=== PATIENT | female | born 1940 | race Caucasian/White ===

== ENCOUNTER 2017-07-28 14:00 | Inpatient (IN) | payer MEDICARE ==
[~2017-07-28] VITALS: Ht 149.9 cm; Wt 90.4 kg
[2017-07-28 13:24] VITALS: BP 175/65
[2017-07-28 13:29] LABS: BASOPHILS % (AUTO) 1.4 % (0.0-5.0); EOSINOPHILS % (AUTO) 3.5 % (0.0-8.0); HEMATOCRIT 32.8 % (36-48); LYMPHOCYTES % (AUTO) 33.1 % (21.0-51.0); MEAN CORPUSCULAR HEMOGLOBIN 27.1 pg (27.0-33.0); MEAN CORPUSCULAR HGB CONC 32.1 g/dL (32.0-36.0); MEAN CORPUSCULAR VOLUME 84.5 fL (79-99); MONOCYTES % (AUTO) 9.1 % (3.0-13.0); NEUTROPHILS % (AUTO) 52.9 % (40.0-77.0); PLATELET COUNT (AUTO) 337 K/uL (130-400); RED BLOOD CELL COUNT(AUTO) 3.88 MIL/uL (4.00-5.50); WHITE BLOOD COUNT (AUTO) 10.3 K/uL (4.8-10.8)
[2017-07-28 13:53] LABS: CREATININE 0.8 mg/dL (0.5-1.5); POTASSIUM 4.7 mmol/L (3.5-5.1)
[~2017-07-28 14:00] MED LIST: ASPI-1181 PO; COENZYME Q10 PO; CYCL5TAB PO; ESCI10TA54 PO; FISH1CAP63 PO; FURO20TA4 PO; GABA-318 PO; HUM10VIA6 SQ; LOSA100T29 PO; OXYB5TAB10 PO; POTA20TA82 PO; TRAM50TA4 PO; TURM500C9 PO; tylenol arthritis PO
[2017-07-28] MEDS ORDERED: HUM10VIA6 SQ (14:05)
[2017-07-30] VITALS (21 sets, daily range): BP systolic 119–172; BP diastolic 57–87
[2017-07-30] MEDS: CLINDAMYCIN 900 MG/D5% WATER 50 ML IV SCH ×5 (05:00→19:16)
[2017-07-30 06:35] LABS: HEMATOCRIT 32.2 % (36-48); MEAN CORPUSCULAR HEMOGLOBIN 26.7 pg (27.0-33.0); MEAN CORPUSCULAR HGB CONC 31.8 g/dL (32.0-36.0); MEAN CORPUSCULAR VOLUME 83.8 fL (79-99); PLATELET COUNT (AUTO) 329 K/uL (130-400); RED BLOOD CELL COUNT(AUTO) 3.85 MIL/uL (4.00-5.50); RED CELL DISTRIBUTION WIDTH 16.9 % (11.0-15.5); WHITE BLOOD COUNT (AUTO) 9.3 K/uL (4.8-10.8)
[2017-07-30] MEDS ORDERED: THROMBIN-JMI 20000 UNIT KIT TP ONE (06:39)
[2017-07-30] MEDS ORDERED: BUPIVACAINE/PF 0.25% 30ML VIAL IJ ONE (06:39)
[2017-07-30] MEDS ORDERED: EPINEPHRINE 1 MG/ML AMPULE ONE (06:39)
[2017-07-30] MEDS ORDERED: BACITRACIN 50,000 UNIT VIAL ONE (06:39)
[2017-07-30] MEDS ORDERED: DURAMORPH PF1 MG/ML 10ML AMP IV ONE (06:39)
[2017-07-30] MEDS ORDERED: SODIUM CHLORIDE 0.9% 1000ML 1,000 ML IV ONE (06:49)
[2017-07-30] MEDS ORDERED: MIDAZOLAM HCL 1 MG/ML 2ML VIAL ONE (07:18)
[2017-07-30] MEDS ORDERED: GLYCOPYRROLATE 0.2 MG/ML 5 ML VIAL ONE (07:18)
[2017-07-30] MEDS ORDERED: DEXAMETHASONE SOD PHOSPHATE 10MG/ML 1ML VIAL ONE ×2 (07:18→09:25)
[2017-07-30] MEDS ORDERED: ONDANSETRON HCL 4 MG/2 ML VIAL ONE ×2 (07:18→09:24)
[2017-07-30] MEDS ORDERED: NEOSTIGMINE 5MG/5ML SYR IV ONE (07:18)
[2017-07-30] MEDS ORDERED: LIDOCAINE PF 2% 5ML ABBOJECT ONE (07:18)
[2017-07-30] MEDS ORDERED: FENTANYL CITRATE PF 50 MCG/1 ML 2ML VIAL ONE ×3 (07:19→09:11)
[2017-07-30] MEDS ORDERED: PROPOFOL 10 MG/ML 20ML VIAL IV ONE (07:19)
[2017-07-30] MEDS ORDERED: ESMOLOL HCL 10 MG/ML 10 ML VIAL ONE (09:24)
[2017-07-30] MEDS ORDERED: METOCLOPRAMIDE 10 MG/2 ML VIAL ONE (09:24)
[2017-07-30] MEDS ORDERED: LIDOCAINE HCL 4% LTA SOL 4 ML VIAL ONE (09:25)
[2017-07-30] MEDS ORDERED: ROCURONIUM BROMIDE 10MG/1ML 5ML VL ONE ×2 (09:26)
[2017-07-30] MEDS ORDERED: SUCCINYLCHOLINE CHLORIDE 20 MG/ML 10 ML VIAL ONE (09:26)
[2017-07-30] MEDS ORDERED: ARTIFICIAL TEARS 3.5 GM OINTMENT ONE (09:27)
[2017-07-30] MEDS ORDERED: HYDRALAZINE HCL 20 MG/ML VIAL ONE (09:52)
[2017-07-30] MEDS ORDERED: SODIUM CHLORIDE 0.9% 10 ML VIAL IVP PRN (10:15)
[2017-07-30] MEDS ORDERED: CYCLOBENZAPRINE HCL 10 MG TABLET PO SCH (10:15)
[2017-07-30] MEDS ORDERED: MORPHINE SULFATE 2 MG/ML 1ML SYG IVP PRN (10:15)
[2017-07-30] MEDS ORDERED: PROMETHAZINE HCL 25 MG/ML 1ML AMPULE IM PRN (10:15)
[2017-07-30] MEDS ORDERED: HYDROCODONE/ACETAMINOPHEN 5/325 MG TAB PO PRN (10:15)
[2017-07-30] MEDS: DEXAMETHASONE SOD PHOSPHATE 4 MG/ML 1ML VIAL IVP SCH ×3 (10:15→21:43)
[2017-07-30] MEDS ORDERED: TRAMADOL HCL 50 MG TABLET PO SCH (10:15)
[2017-07-30] MEDS ORDERED: ACETAMINOPHEN 325 MG TAB PO PRN (10:15)
[2017-07-30] MEDS ORDERED: MEPERIDINE-PF 25 MG/ML SYG ONE ×2 (10:25→10:40)
[2017-07-30] MEDS: LACTATED RINGERS 1000ML 1,000 ML IV SCH ×2 (12:42→21:43)
[2017-07-30] MEDS: GABAPENTIN 300 MG CAPSULE PO SCH ×2 (15:27→20:19)
[2017-07-30] MEDS ORDERED: INSULIN HUMULIN 70/30 100 UNIT/ML 3ML SQ SCH (21:00)
[2017-07-30] MEDS ORDERED: OXYBUTYNIN CHLORIDE 5 MG TABLET PO SCH (21:00)
[2017-07-30] MEDS ORDERED: CITALOPRAM 20 MG TABLET PO SCH (21:00)
[2017-07-31 00:04] VITALS: BP 158/79
[2017-07-31 04:00] VITALS: BP 157/77
[2017-07-31] MEDS: DEXAMETHASONE SOD PHOSPHATE 4 MG/ML 1ML VIAL IVP SCH (04:33)
[2017-07-31 07:26] VITALS: BP 158/76
[2017-07-31] MEDS ORDERED: ULTRA COQ10 100 MG PO SCH (09:00)
[2017-07-31] MEDS ORDERED: FUROSEMIDE 20 MG TABLET PO SCH (09:00)
[2017-07-31] MEDS ORDERED: POTASSIUM CHLORIDE 20 MEQ ERTAB PO SCH (09:00)
[2017-07-31] MEDS ORDERED: LOSARTAN 100 MG TABLET PO SCH (09:00)
[2017-07-31] MEDS ORDERED: TURMERIC ROOT EXTRACT 500 MG PO SCH (09:00)
[2017-07-31] MEDS ORDERED: ASPIRIN 81 MG EC TAB PO SCH (09:00)
[2017-07-31] MEDS ORDERED: INSULIN HUMULIN 70/30 100 UNIT/ML 3ML SQ SCH (09:00)
[2017-07-31] MEDS ORDERED: FISH OIL 1000 MG/CAP PO SCH (09:00)
== END 2017-07-31 09:00 | disposition home or self-care (01) | DRG 516 ==
LOC: EDSTATUS 14:00 → DAHIP 07-30 06:00 → 4AH 07-30 11:30
PROVIDERS: ADMIT Neurological Surgery; ATTEND Neurological Surgery
PROC: 01NB0ZZ Release Lumbar Nerve, Open Approach (ICD-10-PCS; principal; 2017-07-30 07:30)
PROC: 4A11X4G Monitoring of Peripheral Nervous Electrical Activity, Intraoperative, External Approach (ICD-10-PCS; 2017-07-30 07:30)
DX: M54.16 Radiculopathy, lumbar region (principal); Z68.41 Body mass index [BMI] 40.0-44.9, adult; E11.42 Type 2 diabetes mellitus with diabetic polyneuropathy; I11.0 Hypertensive heart disease with heart failure; I50.9 Heart failure, unspecified; M48.00 Spinal stenosis, site unspecified; F41.9 Anxiety disorder, unspecified; E66.01 Morbid (severe) obesity due to excess calories; M19.90 Unspecified osteoarthritis, unspecified site; F32.9 Major depressive disorder, single episode, unspecified; Z79.4 Long term (current) use of insulin; Z90.49 Acquired absence of other specified parts of digestive tract; Z90.710 Acquired absence of both cervix and uterus; Z88.0 Allergy status to penicillin; Z88.8 Allergy status to other drugs, medicaments and biological substances
CPT/HCPCS: 36415; 72020; 80048; 82948; 85025; 85027; A4344; J0171; J0330; J0360; J1100; J1815; J2001; J2175; J2250; J2274; J2405; J2704; J2710; J2765; J3010; J3490; J7030; J7120

== ENCOUNTER → 2018-09-02 | Outpatient (CLI) | payer MEDICARE ==
[~2018-09-02] MED LIST changes: -GABA-318 PO; +GABA600T10 PO; +GADODIAMIDE 10 MMOL/20 ML VIAL IV ONE; -LOSA100T29 PO; +LOSA100T58 PO
== END | disposition home or self-care (01) ==
LOC: RAH 16:04
PROVIDERS: ATTEND Neurological Surgery
DX: M51.86 Other intervertebral disc disorders, lumbar region (principal); M47.816 Spondylosis without myelopathy or radiculopathy, lumbar region; M48.062 Spinal stenosis, lumbar region with neurogenic claudication
CPT/HCPCS: 72158; A9579